=== PATIENT | female | born 1990 ===

== ENCOUNTER 2020-01-20 08:00 | Outpatient (CLI) | payer OTHER ==
[2020-01-20 10:07] LABS: MUDS CUTOFF CONCENTRATIONS CUTOFF CONC BELOW:
[2020-01-20 10:12] LABS: BILIRUBIN,URINE NEGATIVE (NEGATIVE); GLUCOSE, URINE (UA) NEGATIVE (NEGATIVE); KETONES,URINE (UA) NEGATIVE (NEGATIVE); LEUKOCYTE ESTERASE, URINE SMALL (NEGATIVE); NITRITE,URINE NEGATIVE (NEGATIVE); OCCULT BLOOD,URINE NEGATIVE (NEGATIVE); PH,URINE 6.5 PH (5.0-7.5); PROTEIN,URINE NEGATIVE (NEGATIVE); UROBILINOGEN,URINE 0.2 (NORMAL) E.U./dL (NORMAL)
[2020-01-20 10:26] LABS: BACTERIA,URINE Rare /HPF (None Seen); CLARITY,URINE HAZY (CLEAR); RBC,URINE None Seen /HPF (0-5); SQUAMOUS EPITHELIAL CELL,UR MOD Squamous (<= Few)
[2020-01-20 10:27] LABS: AMPHETAMINE SCREEN,URINE NEGATIVE (NEGATIVE); BENZODIAZEPINES SCREEN, URINE NEGATIVE (NEGATIVE); COCAINE SCREEN URINE NEGATIVE (NEGATIVE); METHADONE SCREEN, URINE NEGATIVE (NEGATIVE); METHAMPHETAMINES SCREEN, URINE NEGATIVE (NEGATIVE); OPIATE SCREEN, URINE NEGATIVE (NEGATIVE); OXYCODONE SCREEN, URINE NEGATIVE (NEGATIVE); PROPOXYPHENE SCREEN, URINE NEGATIVE (NEGATIVE); TRICYCLIC ANTIDEPRESSANT,URINE NEGATIVE (NEGATIVE)
== END 2020-01-20 23:59 | disposition home or self-care (01) ==
LOC: LAB.R 08:00
PROVIDERS: ATTEND Obstetrics & Gynecology
DX: Z32.01 Encounter for pregnancy test, result positive (principal)
CPT/HCPCS: 80306; 81001; 87086

== ENCOUNTER 2020-02-02 15:29 | Outpatient (CLI) | payer OTHER ==
--- NOTE | 2020-02-03 08:33 | Ultrasound Report ---
PROCEDURE: OB First Trimester INDICATIONS: POSITIVE TEST OUTSIDE/PRIOR DATING DATA: Last menstrual period (LMP): 12/08/2019. LMP-based estimated date of delivery (MAYA): 09/13/2020. First dating scan (date and location): Report from OB ultrasound at [facility] dated 2019 is reviewed, the study did not identify a right ovary. Estimated date of delivery (MAYA) from this [facility] dating scan: 09/12/2020, +/- 5 days. TECHNIQUE: Real-time scanning was performed of the fetus and maternal pelvic organs, with image documentation. COMPARISON: Report from prior outside OB ultrasound 08/18/2019. FINDINGS: Embryo: There is a single living intrauterine gestation with crown-rump length 1.7 cm which correla ava with a gestational age estimate of 8 weeks 1 day, +/- 5 days. No subchorionic hemorrhage is foun d. Measurement variability in dating: +/- 4 weeks by LMP, +/- 7 days by mean sac diameter (use before 6 weeks gestation if crown-rump length not able to be measured), +/- 5 days by crown-rump length (6-12 weeks gestation). Maternal organs: Ovaries : On the left there is a corpus luteum cyst measuring 1.6 x 2.5 x 2.7 cm. T he overall left ovarian dimensions are 3.2 x 2.8 x 4.2 cm. On the right a normal-appearing ovary was not located. This also was the case on the prior outside ul trasound from 08/18/2019. Scanning through this area raises question for presence of a hyperechoic soraya ection of material at the right adnexal area posteriorly, measuring up to 4.9 x 5.1 x 3.7 cm. This co uld represent evidence of a ovarian dermoid. A small 1.0 x 1.1 x 0.8 cm right adnexal cyst more super iorly is identified. Limited images through the kidneys demonstrate no hydronephrosis. IMPRESSION: Single living intrauterine gestation, with normal heart rate and no evidence of subchorionic hemorrha ge. By crown-rump length the current estimated gestational age is 8 weeks 1 day, +/- 5 days with proj ected delivery date centered on 09/12/2020, +/- 5 days. Normal left ovary containing a corpus luteum cyst. A normal right ovary could not be located, and als o was not identified according to the prior OB ultrasound report from 08/18/2019, outside study. The cu rrent examination identifies a hyperechoic region potentially a manifestation of dermoid tumor at the posterior right adnexa area, measuring up to 4.9 x 5.1 x 3.7 cm this area could be further assessed by pelvic MR scanning, depending on the clinical status. CT scanning at this time would not be recomm ended. Reviewed by: Sunil Zelaya MD on 02/03/2020 8:32 AM PDT Approved by: Sunil Zelaya MD on 02/03/2020 8:32 AM PDT Station ID: [id number]
--- NOTE | 2020-02-03 08:36 | Ultrasound Report ---
PROCEDURE: OB Transvaginal INDICATIONS: POSITIVE TEST TECHNIQUE: Transvaginal scanning was performed, and results are combined with report from OB first tr imester study done same day. COMPARISON: Transabdominal scanning also performed during OB first trimester study same day.. IMPRESSION: Please refer to the 02/02/2020 combined report, OB first trimester examination, which includes both tr ansabdominal and transvaginal scanning. Reviewed by: Sunil Zelaya MD on 02/03/2020 8:34 AM PDT Approved by: Sunil Zelaya MD on 02/03/2020 8:34 AM PDT Station ID: [id number]
== END 2020-02-02 15:30 | disposition home or self-care (01) ==
LOC: DI 15:29
PROVIDERS: ATTEND Obstetrics & Gynecology
DX: Z32.01 Encounter for pregnancy test, result positive (principal)
CPT/HCPCS: 76801; 76817

== ENCOUNTER 2020-02-08 07:00 | Outpatient (CLI) | payer OTHER ==
[2020-02-09 11:02] LABS: BILIRUBIN,URINE NEGATIVE (NEGATIVE); GLUCOSE, URINE (UA) NEGATIVE (NEGATIVE); KETONES,URINE (UA) NEGATIVE (NEGATIVE); LEUKOCYTE ESTERASE, URINE NEGATIVE (NEGATIVE); NITRITE,URINE NEGATIVE (NEGATIVE); OCCULT BLOOD,URINE NEGATIVE (NEGATIVE); PH,URINE 6.5 PH (5.0-7.5); PROTEIN,URINE NEGATIVE (NEGATIVE); UROBILINOGEN,URINE 0.2 (NORMAL) E.U./dL (NORMAL)
[2020-02-09 11:16] LABS: BACTERIA,URINE None Seen /HPF (None Seen); CLARITY,URINE CLEAR (CLEAR); RBC,URINE 0-5 /HPF (0-5); SQUAMOUS EPITHELIAL CELL,UR NONE SEEN (<= Few)
== END 2020-02-08 23:59 | disposition home or self-care (01) ==
LOC: LAB.R 07:00
PROVIDERS: ATTEND Nurse Practitioner Obstetrics & Gynecology
DX: Z36.89 Encounter for other specified antenatal screening (principal)
CPT/HCPCS: 81001; 87086

== ENCOUNTER 2020-03-07 08:00 | Outpatient (CLI) | payer OTHER ==
[2020-03-07 21:08] LABS: TRICHOMONAS VAGINALIS DNA NEGATIVE (NEGATIVE)
== END 2020-03-07 23:59 | disposition home or self-care (01) ==
LOC: LAB.R 08:00
PROVIDERS: ATTEND Advanced Practice Midwife
DX: Z34.90 Encounter for supervision of normal pregnancy, unspecified, unspecified trimester (principal)
CPT/HCPCS: 87491; 87591; 87661

== ENCOUNTER 2020-03-13 16:14 | Outpatient (CLI) | payer OTHER ==
[2020-03-13 17:17] LABS: BASOPHILS # (AUTO) 0.1 10^3/uL (0.0-0.1); BASOPHILS % (AUTO) 0.4 %; EOSINOPHILS # (AUTO) 0.2 10^3/uL (0.0-0.7); EOSINOPHILS % (AUTO) 1.8 %; HGB - HEMOGLOBIN 11.5 g/dL (12.0-16.0); LYMPHOCYTES # (AUTO) 3.2 10^3/uL (1.5-3.5); MEAN CORPUSCULAR HEMOGLOBIN 29.8 pg (27.0-31.0); MEAN CORPUSCULAR HGB CONC 34.7 g/dL (32.0-36.0); MEAN CORPUSCULAR VOLUME 85.8 fL (81.0-99.0); MEAN PLATELET VOLUME 10.7 fL (7.9-10.8); MONOCYTES # (AUTO) 0.7 10^3/uL (0.0-1.0); NEUTROPHILS % (AUTO) 65.1 %; PLT - PLATELET COUNT 239 10^3/uL (130-450); RED BLOOD COUNT 3.86 10^6/uL (4.20-5.40); RED CELL DISTRIBUTION WIDTH 11.9 % (12.0-15.0); WHITE BLOOD COUNT 12.2 x10^3/uL (4.8-10.8)
[2020-03-14 10:11] LABS: HEPATITIS B SURFACE ANTIGEN NON-REACTIVE (NON-REACTIVE); HEPATITIS C ANTIBODY NON-REACTIVE (NON-REACTIVE)
[2020-03-14 15:16] LABS: HIV AG/AB 4TH GEN NON-REACTIVE (NON-REACTIVE)
== END 2020-03-13 16:15 | disposition home or self-care (01) ==
LOC: LAB 16:14
PROVIDERS: ATTEND Nurse Practitioner Obstetrics & Gynecology
DX: Z36.8A Encounter for antenatal screening for other genetic defects (principal); Z84.89 Family history of other specified conditions; Z36.89 Encounter for other specified antenatal screening
CPT/HCPCS: 36415; 81220; 81243; 81329; 81599; 85025; 86592; 86762; 86803; 86850; 86900; 86901; 87340; 87389